=== PATIENT | male | born 1960 | race Caucasian/White ===

== ENCOUNTER → 2024-02-15 | Outpatient (CLI) | payer OTHER ==
[~2024-02-15] MED LIST: LIDOCAINE 1% MDV 20ML VIAL As Ordered ONE
[2024-02-15 14:40] VITALS: TEMP 98.4
[2024-02-15 14:58] VITALS: BP 172/96; O2SAT 96
== END ==
LOC: M IRPRO 14:23
PROVIDERS: ATTEND Nurse Practitioner Family
DX: E04.1 Nontoxic single thyroid nodule (principal)